=== PATIENT | female | born 1980 | race Two or more races ===

== ENCOUNTER 2019-10-30 16:19 | Emergency (ER) | payer OTHER ==
[2019-10-30] MEDS ORDERED: ALBUTEROL SO4 HFA INHALER IH ONE (16:31)
--- NOTE | 2019-10-30 16:31 | PDOC ---
Rapid Medical Evaluation Time Seen by Provider: 10/30/19 16:28 Medical Evaluation: Allergies Allergy/AdvReac Type Severity Reaction Status Date / Time peanut Allergy Verified 07/06/17 00:55 10/30/19 16:29 I have performed a brief in-person evaluation of this patient. CC: "I want to be checked for my asthma." PE: speaking full sentences. Lungs CTAB. Orders: linette MDI. Patient will proceed to ED for further evaluation. Discharge Disposition - Diagnosis Asthma - Referrals - Patient Instructions - Post Discharge Activity
[2019-10-30 16:32] VITALS: BP 110/72; PULSE 88; TEMP 97.9; BMI 25.7
--- NOTE | 2019-10-30 17:00 | PDOC ---
History of Present Illness - General Chief Complaint: Asthma Stated Complaint: ASTHMA Time Seen by Provider: 10/30/19 16:28 History Source: Patient Exam Limitations: Clinical Condition - History of Present Illness Initial Comments: 10/30/19 16:53 Patient with past medical history of asthma on albuterol inhaler present for evaluation of asthma symptoms which has been going on for 2 weeks. Patient reported calling her asthma clinic but will not be seen due to COVID pandemic and they want her to come with any respiratory symptoms. Patient denies shortness of breath, fever, cough, chest pain, palpitation. Patient reported last using asthma inhaler yesterday. Patient reports this morning to have a chest x-ray make sure everything is fine Is this a multiple visit Asthma Patient?: No Timing/Duration: other (2 weeks) Past History - Medical History Allergies/Adverse Reactions: Allergies Allergy/AdvReac Type Severity Reaction Status Date / Time peanut Allergy Verified 07/06/17 00:55 Home Medications: Ambulatory Orders Methylprednisolone [Medrol Dose Artemio] 4 mg PO ASDIR #21 tablet 10/30/19 Asthma: Yes COPD: No - Psycho-Social/Smoking History Smoking History: Never smoked Have you smoked in the past 12 months: No Information on smoking cessation initiated: No - Substance Abuse Hx (Audit-C & DAST Scrn) How often the patient has a drink containing alcohol: Never Score: In Men: 4 or > Positive; In Women: 3 or > Positive: 0 Screen Result (Pos requires Nsg. Audit-10AR): Negative In the last yr the pt used illegal drug/Rx for NonMed reason: No Score: Yes response is considered Positive: 0 Screen Result (Positive result requires Nsg. DAST-10): Negative Review of Systems - Review of Systems Able to Perform ROS?: Yes Is the patient limited Azeri proficient: No Constitutional: No: Chills, Fever, Malaise HEENTM: No: Symptoms Reported, See HPI, Eye Pain, Blurred Vision, Tearing, Recent change in vision, Double Vision, Cataracts, Ear Pain, Ocular Prothesis, Ear Discharge, Nose Pain, Nose Congestion, Tinnitus, Nose Bleeding, Hearing Loss, Throat Pain, Throat Swelling, Mouth Pain, Dental Problems, Difficulty Swallowing, Mouth Swelling, Other Respiratory: Yes: Symptoms reported, See HPI, Shortness of Breath (intermittent), Wheezing (intermittent). No: Cough, Orthopnea, SOB with Exertion, SOB at Rest, Stridor, Productive cough, Hemoptysis, Other Cardiac (ROS): No: Symptoms Reported, See HPI, Chest Pain, Edema, Irregular Heart Rate, Lightheadedness, Palpitations, Syncope, Chest Tightness, Other ABD/GI: No: Symptoms Reported, Nausea, Vomiting Integumentary: No: Symptoms Reported Neurological: No: Symptoms reported, Dizziness All Other Systems: Reviewed and Negative *Physical Exam - Vital Signs Last Vital Signs Temp Pulse Resp BP Pulse Ox 97.9 F 88 18 110/72 100 10/30/19 16:30 10/30/19 16:30 10/30/19 16:30 10/30/19 16:30 10/30/19 16:30 - Physical Exam 10/30/19 17:01 GENERAL: Well developed, well nourished. Awake and alert. No acute distress. HEENT: Normocephalic, atraumatic. PERRLA, EOMI. No conjunctival pallor. Sclera are non-icteric. Moist mucous membranes. Oropharynx is clear. NECK: Supple. Full ROM. CARDIOVASCULAR: Regular rate and rhythm. No murmurs, rubs, or gallops. Distal pulses are 2+ and symmetric. PULMONARY: No evidence of respiratory distress. Lungs clear to auscultation bilaterally. No wheezing, rales or rhonchi. ABDOMINAL: Soft. Non-tender. Non-distended. No rebound or guarding. No organomegaly. Normoactive bowel sounds. MUSCULOSKELETAL Normal range of motion at all joints. SKIN: Warm and dry. Normal capillary refill. No rashes. No cyanosis. NEUROLOGICAL: Alert, awake, appropriate. Gait is normal without ataxia. PSYCHIATRIC: Cooperative. Good eye contact. Appropriate mood General Appearance: Yes: Nourished, Appropriately Dressed. No: Apparent Distress ED Treatment Course - RADIOLOGY Radiology Studies Ordered: Category Date Time Status CHEST PA & LAT [RAD] Stat Radiology 10/30/19 16:48 Ordered Medical Decision Making - Medical Decision Making 10/30/19 17:00 Patient with past medical history of asthma on albuterol inhaler present for evaluation of asthma symptoms which has been going on for 2 weeks. Patient reported calling her asthma clinic but will not be seen due to COVID pandemic and they want her to come with any respiratory symptoms. Patient denies shortness of breath, fever, cough, chest pain, palpitation. Patient reported last using asthma inhaler yesterday. Patient reports this morning to have a chest x-ray make sure everything is fine Clinical exam unremarkable. Lungs clear to auscultation and normal cardio exam with patient in no acute distress. Patient afebrile. Patient symptoms likely well-controlled asthma. Will order checks x-ray as requ ested by patient. Treatment based on imaging results 10/30/19 18:25 Checks x-ray shows no acute infiltrate or abnormality. Patient stable for discharge on Medrol Artemio and home albuterol inhaler with PCP follow-up Discharge - Discharge Information Problems reviewed: Yes Clinical Impression/Diagnosis: Asthma Qualifiers: Asthma severity: mild Asthma persistence: intermittent Asthma complication type: with acute exacerbation Qualified Code(s): J45.21 - Mild intermittent asthma with (acute) exacerbation Condition: Stable Disposition: HOME - Admission No - Additional Discharge Information Prescriptions: Methylprednisolone [Medrol Dose Artemio] 4 mg PO ASDIR #21 tablet - Follow up/Referral - Patient Discharge Instructions Patient Printed Discharge Instructions: Asthma -- Adult Additional Instructions: Your chest x-ray was normal and shows no pneumonia. Continue with home asthma medication. Take prescribed medication as prescribed. Follow-up with your technical staff assistant as needed - Post Discharge Activity
== END 2019-10-30 17:30 | disposition home or self-care (01) ==
LOC: JERFT 16:19
DX: J45.21 Mild intermittent asthma with (acute) exacerbation (principal)
CPT/HCPCS: 71046-TC-FY; 99283-25

== ENCOUNTER 2020-08-06 16:51 | Emergency (ER) | payer OTHER ==
[2020-08-06 17:02] VITALS: BP 115/83; PULSE 92; TEMP 98.2; BMI 31.1
== END 2020-08-06 19:00 | disposition home or self-care (01) ==
LOC: JER 16:51 → JCOVINFU 16:51
DX: J98.01 Acute bronchospasm (principal); J45.21 Mild intermittent asthma with (acute) exacerbation; J02.9 Acute pharyngitis, unspecified
CPT/HCPCS: 71046-TC-FY; 87880; 93005; 93010; 99284-25; C9803; U0003; U0005

== ENCOUNTER 2021-06-11 16:22 | Emergency (ER) | payer OTHER ==
[2021-06-11 16:37] VITALS: BP 110/75; PULSE 86; TEMP 99; BMI 27.4
[2021-06-11] MEDS ORDERED: BUPIVACAINE HCL 0.25% 125 MG/50 ML VIAL INF ONE (18:19)
[2021-06-11] MEDS ORDERED: BUPIVACAINE HCL/PF 0.5% (5MG/ML) 10 ML VIAL ONE (18:21)
[2021-06-11] MEDS ORDERED: ACETAMINOPHEN WITH CODEINE 300MG/30MG TABLET PO ONE (18:37)
[2021-06-11] MEDS ORDERED: ACETAMINOPHEN WITH CODEINE 300MG/30MG TABLET ONE (18:44)
== END 2021-06-11 19:03 | disposition home or self-care (01) ==
LOC: JERFT 16:22
DX: K08.89 Other specified disorders of teeth and supporting structures (principal)
CPT/HCPCS: 99283-25

== ENCOUNTER 2023-06-14 15:56 | Emergency (ER) | payer OTHER ==
[2023-06-14 16:05] VITALS: BP 94/57; PULSE 100; RESP 18; TEMP 97.7; BMI 29.2
[2023-06-14] MEDS ORDERED: ALBUTEROL SO4 2.5/IPRATROPIUM 0.5 INH SOL 3 ML VIAL.NEB. NEB ONE (17:14)
[2023-06-14] MEDS: ALBUTEROL SO4 2.5/IPRATROPIUM 0.5 INH SOL 3 ML VIAL.NEB. NEB ONE (17:25)
[2023-06-14 17:43] LABS: BASO % 0.7 % (0-2.0); EOS % 5.8 % (0-4.5); HEMATOCRIT 34.5 % (32.4-45.2); HEMOGLOBIN 11.8 GM/dL (10.7-15.3); LYMPH % 21.7 % (8-40); MCH 29.5 pg (25.7-33.7); MCHC 34.2 g/dl (32.0-36.0); MEAN CELL VOLUME 86.2 fl (80-96); MEAN PLT VOLUME 7.8 fl (7.5-11.1); MONO % 7.4 % (3.8-10.2); NEUT % 64.4 % (42.8-82.8); PLATELET COUNT 348 10^3/uL (134-434); RDW 14.7 % (11.6-15.6); WHITE BLOOD COUNT 7.1 K/mm3 (4.0-10.0)
[2023-06-14 18:13] LABS: CALCIUM 8.8 mg/dL (8.5-10.1)
[2023-06-14 18:14] LABS: ALBUMIN 3.7 g/dl (3.4-5.0); BLOOD UREA NITROGEN 7.8 mg/dL (7-18)
[2023-06-14 18:17] LABS: CREATININE 0.8 mg/dL (0.55-1.3)
[2023-06-14 18:18] LABS: BILIRUBIN,TOTAL 0.6 mg/dL (0.2-1)
== END 2023-06-14 19:25 | disposition home or self-care (01) ==
LOC: JER 15:56
PROC: 3E0F7GC Introduction of Other Therapeutic Substance into Respiratory Tract, Via Natural or Artificial Opening (ICD-10-PCS; principal; 2023-06-14)
DX: R07.89 Other chest pain (principal); J45.909 Unspecified asthma, uncomplicated; R06.02 Shortness of breath; Z20.822 Contact with and (suspected) exposure to COVID-19
CPT/HCPCS: 0241U-QW; 36415; 71045-TC-FY; 80053; 84484; 85025; 93005; 93010; 99285-25

== ENCOUNTER 2023-12-02 18:05 | Emergency (ER) | payer OTHER ==
[2023-12-02 18:23] VITALS: BP 98/66; RESP 16; TEMP 98.4; BMI 27.4
[2023-12-02 21:06] VITALS: PULSE 70
== END 2023-12-02 21:07 | disposition home or self-care (01) ==
LOC: JER 18:05
DX: R05.9 Cough, unspecified (principal); R53.83 Other fatigue; R09.81 Nasal congestion; R43.9 Unspecified disturbances of smell and taste; B34.9 Viral infection, unspecified; U07.1 COVID-19
CPT/HCPCS: 0241U-QW; 71048-TC-FY; 99284-25

== ENCOUNTER 2025-02-09 14:01 | Emergency (ER) | payer OTHER ==
[2025-02-09 14:13] VITALS: BP 110/80; PULSE 99; RESP 20; TEMP 98.2; BMI 25.8
== END 2025-02-09 15:44 | disposition home or self-care (01) ==
LOC: JERFT 14:01
DX: J40 Bronchitis, not specified as acute or chronic (principal); R09.81 Nasal congestion; J02.9 Acute pharyngitis, unspecified; R05.9 Cough, unspecified; R59.0 Localized enlarged lymph nodes
CPT/HCPCS: 71046-TC-FY; 99283-25